=== PATIENT | male | born 1995 | race Caucasian/White ===

== ENCOUNTER 2025-08-02 10:35 | Outpatient (CLI) | payer OTHER, SELFPAY ==
--- NOTE | ~2025-08-02 | MR_ITS ---
EXAMINATION: MR lower leg LT wo con, MR lower leg RT wo con DATE: 08/02/2025 11:26 INDICATION: Bilateral lower leg pain TECHNIQUE: 1. Magnetic resonance imaging (MRI) of the left lower leg was performed without intravenous contrast. Sequences included axial, sagittal and coronal T1- weighted FSE and fluid sensitive FSE STIR. 2. Magnetic resonance imaging (MRI) of the right lower leg was performed without intravenous contrast. Sequences included axial, sagittal and coronal T1- weighted FSE and fluid sensitive FSE STIR. COMPARISON: None. FINDINGS: There are small low signal intensity bone islands at the medial lateral femoral condyles of the distal left femur and at the base of the left medial malleolus. Otherwise normal bone marrow signal throughout both lower legs with no reactive edema, fracture or pathologic marrow replacing process. No periostitis. No evident knee or ankle joint effusions at either lower leg although the suprapatellar pouches are excluded from the [id number]. No other abnormal fluid collections identified. There is normal and symmetric muscle bulk and signal throughout both calves. The visualized portions of the tendons are normal. IMPRESSION: 1. Normal MRI studies of the bilateral lower legs with no evident periostitis or stress reaction along either tibia. Reviewed, dictated and finalized at location A. NA MANAGER IMPRESSION: 1. Normal MRI studies of the bilateral lower legs with no evident periostitis o r stress reaction along either tibia.
== END 2025-08-02 10:36 | disposition home or self-care (01) ==
LOC: MICIMG 10:37
PROVIDERS: PCP Physician Assistant; Visit Provider Physician Assistant
DX: M79.662 Pain in left lower leg (principal); M79.661 Pain in right lower leg
CPT/HCPCS: 73718